=== PATIENT | male | born 2005 | race Caucasian/White ===

== ENCOUNTER 2024-05-30 05:44 | Outpatient (CLI) | payer OTHER, SELFPAY | END 2024-05-30 05:45 | disposition home or self-care (01) | LOC: AMB 06-06 03:56 | PROVIDERS: PCP Pediatrics; Visit Provider Family Medicine | DX: S89.91XA Unspecified injury of right lower leg, initial encounter (principal); V47.0XXA Car driver injured in collision with fixed or stationary object in nontraffic accident, initial encounter; Y92.410 Unspecified street and highway as the place of occurrence of the external cause | CPT/HCPCS: A0425; A0433 ==

== ENCOUNTER 2024-05-30 06:25 | Emergency (ER) | payer OTHER, SELFPAY ==
[2024-05-30] VITALS (7 sets, daily range): BP systolic 119–139; BP diastolic 82–92; PULSE 62–93; RESP 16–20; TEMP 36.7; O2SAT 91–94; BMI 25.1
--- NOTE | 2024-05-30 06:27 | CRLHL7_ITS ---
For Patients: As a result of the Cures Act, medical imaging exams and procedure reports are released immediately into your electronic medical record. You may view this report before your referring provider. If you have questions, please contact your health care provider. Indication: Injury Technique: Two images of the right femur were acquired. One as an AP view of the proximal and mid femur and the other is a lateral view of the distal femur and a portion of the proximal tibia and fibula Comparison: None Findings: Displaced fracture of the proximal right femur located approximately 16 centimeters from the greater trochanter Impression: Femur fracture Dictated by Johnny Caballero MD @ 05/30/2024 6:44:11 AM (Electronically Signed)
--- NOTE | 2024-05-30 06:27 | CRLHL7_ITS ---
For Patients: As a result of the Century Cures Act, medical imaging exams and procedure reports are released immediately into your electronic medical record. You may view this report before your referring provider. If you have questions, please contact your health care provider. Indication: Trauma Technique: A single image of the distal right tibia and fibula was provided. This includes the mid and distal thirds of the tibia and fibula Comparison: None Findings: Transverse displaced fractures the distal tibia and fibula. This is located approximately 10 centimeters from the tibiotalar joint Impression: Transversely oriented displaced fractures of the distal tibia and fibula located approximately 10 centimeters from the tibiotalar joint Dictated by Johnny Caballero MD @ 05/30/2024 6:42:56 AM (Electronically Signed)
[2024-05-30 06:36] LABS: Basophils Percent Auto 0.2 % (0.0-3.0); Eosinophils Percent Auto 1.3 % (0.0-7.0); Hematocrit 44.6 % (37.0-53.0); Hemoglobin* 14.6 gm/dL (13.5-17.5); Immature Granulocytes Pct Auto 0.9 %; Lymphocytes Percent Auto 18.6 % (20-44); Mean Corpuscular HGB Conc 33 gm/dL (32-36); Mean Corpuscular Hemoglobin 29 pg (26-34); Mean Corpuscular Volume 90 fL (80-100); Monocytes Percent Auto 3.2 % (0.0-11.0); Neutrophils Percent Auto 75.8 % (42.0-72.0); Platelet Count* 276 K/uL (140-440); RDW Coefficient of Variation % 12.6 % (11.5-15.5); Red Blood Count 4.96 m/uL (4.30-5.90); White Blood Count* 18.26 K/uL (4.50-11.00)
[2024-05-30 06:38] LABS: Slide Review Reflex No
[2024-05-30 06:52] LABS: Chloride* 105 mmol/L (96-114); Potassium* 3.7 mmol/L (3.6-5.1); Sodium* 136 mmol/L (135-149)
[2024-05-30 06:55] LABS: Anion Gap 9 mEq/L (7-15); Carbon Dioxide* 22 mmol/L (20-32); Creatinine* 0.8 mg/dL (0.5-1.5); Estimated Glomerular Filt Rate 130 ml/min
[2024-05-30 06:56] LABS: Blood Urea Nitrogen* 21 mg/dL (5-24); Calcium* 8.5 mg/dL (8.4-10.6); Glucose* 147 mg/dL (60-115)
[2024-05-30] MEDS: fentaNYL 100 MCG/2 ML inj IVP (07:06)
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
== END 2024-05-30 07:27 | disposition short-term general hospital (02) ==
LOC: ED 07:15
PROVIDERS: Emergency Provider Family Medicine; PCP Pediatrics
DX: S72.91XA Unspecified fracture of right femur, initial encounter for closed fracture (principal); S82.201A Unspecified fracture of shaft of right tibia, initial encounter for closed fracture; S82.401A Unspecified fracture of shaft of right fibula, initial encounter for closed fracture; V49.88XA Car occupant (driver) (passenger) injured in other specified transport accidents, initial encounter
CPT/HCPCS: 36415; 73552; 73590; 80048; 81003; 85025; 94761; 96374; 99283; 99285; 99291; G0390; J3010

== ENCOUNTER 2024-05-30 07:10 | Outpatient (CLI) | payer OTHER, SELFPAY | END 2024-05-30 07:11 | disposition home or self-care (01) | LOC: AMB 06-14 00:13 | PROVIDERS: PCP Pediatrics; Visit Provider Family Medicine | DX: S82.201A Unspecified fracture of shaft of right tibia, initial encounter for closed fracture (principal); S72.91XA Unspecified fracture of right femur, initial encounter for closed fracture | CPT/HCPCS: A0425; A0427 ==